=== PATIENT | female | born 1935 | race Caucasian/White ===

== ENCOUNTER 2017-03-31 17:39 | Emergency (ER) | payer OTHER ==
[~2017-03-31] VITALS: Ht 154.9 cm; Wt 126.1 kg
[~2017-03-31 17:39] MED LIST: ALBUTEROL17 GM IH; ALPRAZOLAM0.25 M2 PO; ATARAX,VISTARIL50 MG PO; ATARAX10 MG PO; AUGMENTIN875 MG PO; AVAPRO150 MG PO; CALCITRIOL0.25 MCG PO; DETROL LA2 MG PO; DETROL1 MG PO; DIOVAN320 MG PO; DUONEB 2.5-0.5 M3 ML IH; FLONASE16 G1 BOTH NARES; FLONASE16 G1 NS; FLUTICASONE IH; FUROSEMIDE20 MG; GABAPENTIN300 MG; HCTZ PO; HYDROCHLOROTH12.5 M3 PO; LANTUS100 UNIT/1 SQ; LASIX20 MG PO; LASIX40 MG PO; LEVEMIR100 UNIT/2 SC; LOPRESSOR100 MG PO; LOVASTATIN40 MG PO; MEDROL DOSEPAK4 MG PO; METOPROLOL PO; METOPROLOL TAR100 MG PO; MEVACOR40 MG PO; MUCINEX600 MG PO; NEURONTIN300 MG PO; NORVASC2.5 MG PO; PLAVIX75 MG PO; PREDNISONE; PREDNISONE20 MG PO; PREDNISONE50 MG PO; PROAIR HFA8.5 GM IH; SINGULAIR10 MG; SINGULAIR10 MG PO; STERAPRED DS PO; SYMBICORT60 INHALAT IH; TESSALON PERLE100 MG PO; TRAMADOL HCL50 MG PO; TUSSIN DM CLEA118 M1 PO; VITAMIN D50000 UNI1 PO; ZITHROMAX Z-PA250 MG PO; ZYRTEC10 M2 PO
[2017-03-31 18:36] LABS: HEMATOCRIT 34.2 % (36.0-46.0); MCH 32.1 PG (29.0-34.0); MCHC 33.3 G/DL (30.0-36.0); MCV 96.3 FL (83-99); MEAN PLAT.VOLUME 9.6 uM^3 (9.5-12.4); PLATELET COUNT 214 K/uL (156-360); RBC DIS.WIDTH-CV 12.1 % (11.8-14.6); RBC DIS.WIDTH-SD 42.5 % (39-53); RED BLOOD COUNT 3.55 M/uL (3.80-5.20); WHITE BLOOD COUNT 8.9 K/uL (4.1-10.2)
[2017-03-31 20:00] LABS: CHLORIDE 107 mEq/L (99-109); POTASSIUM 4.8 mEq/L (3.7-5.4); SODIUM 142 mEq/L (136-147)
[2017-03-31 20:03] LABS: ANION GAP 9 MEQ/L (2-14); GLUCOSE 83 mg/dL (70-99)
[2017-03-31 20:04] LABS: TOTAL BILIRUBIN 0.5 mg/dL (0.0-1.0)
[2017-03-31 20:06] LABS: ALKALINE PHOSPHATASE 87 IU/L (3-129); GFR ESTIMATE (CALCULATED) 51 mL/min/
[2017-03-31 20:07] LABS: UREA NITROGEN (BUN) 39 mg/dL (9-23)
[2017-03-31 20:09] LABS: LIPASE 5 U/L (1.0-51.0)
[2017-03-31] MEDS ORDERED: PREPARATION H C51 GM PR (20:32)
[2017-03-31 22:11] VITALS: BP 184/81
== END 2017-03-31 22:12 | disposition home or self-care (01) ==
LOC: EME 17:39
PROVIDERS: Emergency Medicine
DX: R10.13 Epigastric pain (principal); K64.4 Residual hemorrhoidal skin tags; K92.2 Gastrointestinal hemorrhage, unspecified; E11.22 Type 2 diabetes mellitus with diabetic chronic kidney disease; I12.9 Hypertensive chronic kidney disease with stage 1 through stage 4 chronic kidney disease, or unspecified chronic kidney disease; N18.9 Chronic kidney disease, unspecified; Z79.4 Long term (current) use of insulin; E78.5 Hyperlipidemia, unspecified; J44.9 Chronic obstructive pulmonary disease, unspecified; M79.7 Fibromyalgia; K21.9 Gastro-esophageal reflux disease without esophagitis; Z88.8 Allergy status to other drugs, medicaments and biological substances; Z87.891 Personal history of nicotine dependence
CPT/HCPCS: 74177; 80053; 81003; 83605; 83690; 85027; 99281; 99285; J1200; J2270; J2405; J2930

== ENCOUNTER 2017-08-03 07:50 | Observation (INO) | payer OTHER ==
[~2017-08-03] VITALS: Ht 154.9 cm; Wt 125.3 kg
[~2017-08-03 07:50] MED LIST changes: +PREPARATION H C51 GM PR
[2017-08-03 10:03] LABS: HEMATOCRIT 34.1 % (36.0-46.0); HEMOGLOBIN 11.4 G/DL (11.9-15.5); MCH 31.3 PG (29.0-34.0); MCHC 33.4 G/DL (30.0-36.0); MCV 93.7 FL (83-99); PLATELET COUNT 252 K/uL (156-360); RBC DIS.WIDTH-CV 12.4 % (11.8-14.6); RBC DIS.WIDTH-SD 42.7 % (39-53); RED BLOOD COUNT 3.64 M/uL (3.80-5.20); WHITE BLOOD COUNT 9.5 K/uL (4.1-10.2)
[2017-08-03 10:08] LABS: INTER. NORMALIZED RATIO 1.1
[2017-08-03 10:10] LABS: ALBUMIN 3.5 g/dL (3.2-4.8); CHLORIDE 104 mEq/L (99-109); POTASSIUM 4.7 mEq/L (3.7-5.4); PTT 30.3 SEC (25-37); SODIUM 141 mEq/L (136-147)
[2017-08-03 10:13] LABS: GLUCOSE 108 mg/dL (70-99); TOTAL PROTEIN 6.6 g/dL (6.4-8.3)
[2017-08-03 10:15] LABS: TOTAL BILIRUBIN 0.8 mg/dL (0.0-1.0)
[2017-08-03 10:16] LABS: ALKALINE PHOSPHATASE 98 IU/L (3-129); CREATININE 1.1 mg/dL (0.6-1.3); GFR ESTIMATE (CALCULATED) 51 mL/min/
[2017-08-03 10:17] LABS: UREA NITROGEN (BUN) 28 mg/dL (9-23)
[2017-08-03 10:18] LABS: AST (GOT) 19 IU/L (2-34)
[2017-08-03 10:19] LABS: ALT (GPT) 12 IU/L (3-49)
[2017-08-03] MEDS ORDERED: CENTRUM SILVER1 EAC3 PO (15:44)
[2017-08-03] MEDS ORDERED: BREO ELLIPTA 21 EACH IH (15:47)
[2017-08-03 18:30] VITALS: BP 144/74
[2017-08-03 23:56] LABS: APPEARANCE CLOUDY ((CLEAR)); BILIRUBIN NEGATIVE; BLOOD NEGATIVE; COLOR YELLOW ((YELLOW)); GLUCOSE (STRIP) >=500; KETONES 5; LEUKOCYTES LARGE; NITRITE NEGATIVE; PROTEIN (STRIP) 30; SPECIFIC GRAVITY 1.012 (1.000-1.030); UROBILINOGEN 0.2 MG/DL (0.2-1.0)
[2017-08-04] LABS: BACTERIA RARE /HPF; EPITHELIAL CELLS 1+ /HPF; MUCUS TRACE /LPF; UCUL ADDED? YES; WHITE BLOOD CELLS TNTC /HPF (0-5)
[2017-08-04 00:22] VITALS: BP 131/56
[2017-08-04 03:31] VITALS: BP 145/63
[2017-08-04 06:36] VITALS: BP 132/60
[2017-08-04 06:37] LABS: HEMATOCRIT 31.2 % (36.0-46.0); HEMOGLOBIN 10.1 G/DL (11.9-15.5); MCH 30.8 PG (29.0-34.0); MCHC 32.4 G/DL (30.0-36.0); MCV 95.1 FL (83-99); PLATELET COUNT 247 K/uL (156-360); RBC DIS.WIDTH-CV 12.4 % (11.8-14.6); RBC DIS.WIDTH-SD 42.9 % (39-53); RED BLOOD COUNT 3.28 M/uL (3.80-5.20); WHITE BLOOD COUNT 8.5 K/uL (4.1-10.2)
[2017-08-04 07:03] LABS: CHLORIDE 102 MEQ/L (99-109); CREATININE 1.5 MG/DL (0.6-1.3); GFR ESTIMATE (CALCULATED) 36 mL/min/; POTASSIUM 4.6 MEQ/L (3.7-5.4); SODIUM 136 MEQ/L (136-147)
[2017-08-04 07:04] LABS: GLUCOSE 244 mg/dL (70-99); UREA NITROGEN (BUN) 48 mg/dL (9-23)
[2017-08-04 14:34] LABS: CHLORIDE 101 MEQ/L (99-109); CREATININE 1.7 MG/DL (0.6-1.3); GFR ESTIMATE (CALCULATED) 31 mL/min/; GLUCOSE 173 mg/dL (70-99); POTASSIUM 4.4 MEQ/L (3.7-5.4); SODIUM 135 MEQ/L (136-147); UREA NITROGEN (BUN) 52 mg/dL (9-23)
[2017-08-04 15:34] VITALS: BP 130/57
[2017-08-05 00:20] VITALS: BP 127/59
[2017-08-05 06:31] LABS: HEMATOCRIT 30.8 % (36.0-46.0); MCH 31.1 PG (29.0-34.0); MCHC 32.5 G/DL (30.0-36.0); MCV 95.7 FL (83-99); PLATELET COUNT 243 K/uL (156-360); RBC DIS.WIDTH-CV 12.7 % (11.8-14.6); RBC DIS.WIDTH-SD 43.8 % (39-53); RED BLOOD COUNT 3.22 M/uL (3.80-5.20); WHITE BLOOD COUNT 8.6 K/uL (4.1-10.2)
[2017-08-05 07:06] LABS: CHLORIDE 107 MEQ/L (99-109); CREATININE 1.7 MG/DL (0.6-1.3); GFR ESTIMATE (CALCULATED) 31 mL/min/; POTASSIUM 4.6 MEQ/L (3.7-5.4); SODIUM 139 MEQ/L (136-147); UREA NITROGEN (BUN) 64 mg/dL (9-23)
[2017-08-05 07:08] LABS: GLUCOSE 106 mg/dL (70-99)
[2017-08-05 09:05] VITALS: BP 151/63
[2017-08-05 17:56] VITALS: BP 147/68
[2017-08-05 23:52] VITALS: BP 189/81
[2017-08-06 00:12] VITALS: BP 160/82
[2017-08-06 07:13] LABS: CHLORIDE 109 MEQ/L (99-109); GFR ESTIMATE (CALCULATED) 46 mL/min/; GLUCOSE 158 mg/dL (70-99); POTASSIUM 4.4 MEQ/L (3.7-5.4); SODIUM 140 MEQ/L (136-147); UREA NITROGEN (BUN) 52 mg/dL (9-23)
[2017-08-06 07:14] LABS: CREATININE 1.2 MG/DL (0.6-1.3)
[2017-08-06 07:47] VITALS: BP 165/68
[2017-08-06] MEDS ORDERED: Salonpas 4% Patch TD (10:22)
[2017-08-06] MEDS ORDERED: CEFTIN250 MG PO (10:23)
[2017-08-06] MEDS ORDERED: LOVENOX40 MG/0.4 SC (14:21)
== END 2017-08-06 13:45 ==
LOC: EME 07:50 → EDOF 15:40 → 5SOUTH 15:40 → EDOF 15:40 → CANRESERV 15:52 → ENRESERV 15:52 → 5SOUTH 18:06
PROVIDERS: Emergency Medicine; Hospitalist; Internal Medicine
DX: G89.29 Other chronic pain (principal); M25.562 Pain in left knee; M17.12 Unilateral primary osteoarthritis, left knee; N17.9 Acute kidney failure, unspecified; N39.0 Urinary tract infection, site not specified; B96.20 Unspecified Escherichia coli [E. coli] as the cause of diseases classified elsewhere; R26.89 Other abnormalities of gait and mobility; E66.01 Morbid (severe) obesity due to excess calories; Z68.43 Body mass index [BMI] 50.0-59.9, adult; I12.9 Hypertensive chronic kidney disease with stage 1 through stage 4 chronic kidney disease, or unspecified chronic kidney disease; N18.9 Chronic kidney disease, unspecified; J44.9 Chronic obstructive pulmonary disease, unspecified; Z79.52 Long term (current) use of systemic steroids; E11.22 Type 2 diabetes mellitus with diabetic chronic kidney disease; Z79.4 Long term (current) use of insulin; M48.02 Spinal stenosis, cervical region; E78.5 Hyperlipidemia, unspecified; K21.9 Gastro-esophageal reflux disease without esophagitis; R04.0 Epistaxis; Z98.84 Bariatric surgery status; Z90.49 Acquired absence of other specified parts of digestive tract; Z90.710 Acquired absence of both cervix and uterus; Z87.891 Personal history of nicotine dependence; Z88.6 Allergy status to analgesic agent; Z91.041 Radiographic dye allergy status; Z79.02 Long term (current) use of antithrombotics/antiplatelets
CPT/HCPCS: 73564; 73700; 80048; 80048 91; 80053; 81003; 82948; 85027; 85610; 85730; 87077; 87086; 87186; 93005; 94640; 94640 76; 97530 GP; 99281; 99285; G0378; G8978 GP CK; G8979 CJ; G8980 GP CK; G8987 GO CL; G8988 GO CK; G8989 GO CK; J0696; J1650; J1815; J2270; J7030; J7512

== ENCOUNTER 2017-08-06 09:19 | Inpatient (IN) | payer OTHER ==
[~2017-08-06] VITALS: Ht 154.9 cm; Wt 130.7 kg
[~2017-08-06 09:19] MED LIST changes: +BREO ELLIPTA 21 EACH IH; +CENTRUM SILVER1 EAC3 PO
[2017-08-06] MEDS ORDERED: Salonpas 4% Patch TD (10:22)
[2017-08-06] MEDS ORDERED: CEFTIN250 MG PO (10:23)
[2017-08-06] MEDS ORDERED: LOVENOX40 MG/0.4 SC (14:21)
[2017-08-06 16:48] VITALS: BP 170/76
[2017-08-07 05:43] VITALS: BP 136/74
[2017-08-07 15:28] VITALS: BP 148/66
[2017-08-08 06:00] VITALS: BP 158/82
[2017-08-08 15:37] VITALS: BP 148/65
[2017-08-09 05:37] LABS: BASOPHIL (%) 0.7 % (0-1); BASOPHIL COUNT 0.1 K/uL (0-0.1); EOSINOPHIL (%) 11.1 % (0-5); EOSINOPHIL COUNT 0.8 K/uL (0-0.3); HEMATOCRIT 32.3 % (36.0-46.0); HEMOGLOBIN 10.4 G/DL (11.9-15.5); IMMATURE GRANULOCYTE (%) 0.3 % (0.0-0.7); LYMPHOCYTE (%) 18.8 % (15-42); LYMPHOCYTE COUNT 1.3 K/uL (1.0-2.8); MCHC 32.2 G/DL (30.0-36.0); MCV 96.1 FL (83-99); MONOCYTE (%) 9.5 % (3-12); MONOCYTE COUNT 0.7 K/uL (0-0.8); NEUTROPHIL (%) 59.6 % (45-76); NEUTROPHIL COUNT 4.1 K/uL (1.8-6.4); PLATELET COUNT 244 K/uL (156-360); RBC DIS.WIDTH-CV 12.5 % (11.8-14.6); RBC DIS.WIDTH-SD 43.7 % (39-53); RED BLOOD COUNT 3.36 M/uL (3.80-5.20); WHITE BLOOD COUNT 6.9 K/uL (4.1-10.2)
[2017-08-09 05:54] VITALS: BP 137/62
[2017-08-09 05:58] LABS: CHLORIDE 107 MEQ/L (99-109); GFR ESTIMATE (CALCULATED) 57 mL/min/; POTASSIUM 4.6 MEQ/L (3.7-5.4); SODIUM 140 MEQ/L (136-147); UREA NITROGEN (BUN) 36 mg/dL (9-23)
[2017-08-09 05:59] LABS: GLUCOSE 104 mg/dL (70-99)
[2017-08-09 15:13] VITALS: BP 192/81
[2017-08-09 17:16] VITALS: BP 162/84
[2017-08-10 05:42] VITALS: BP 172/70
[2017-08-10 15:06] VITALS: BP 153/70
[2017-08-11 05:58] VITALS: BP 142/72
[2017-08-11 07:21] VITALS: BP 162/75
[2017-08-11 16:33] VITALS: BP 143/66
[2017-08-12 05:53] VITALS: BP 151/64
[2017-08-12 07:28] VITALS: BP 162/70
[2017-08-12 15:04] VITALS: BP 145/64
[2017-08-13 05:06] VITALS: BP 150/86
[2017-08-13 06:43] LABS: BASOPHIL (%) 0.8 % (0-1); BASOPHIL COUNT 0.1 K/uL (0-0.1); EOSINOPHIL (%) 8.6 % (0-5); EOSINOPHIL COUNT 0.6 K/uL (0-0.3); HEMATOCRIT 30.5 % (36.0-46.0); HEMOGLOBIN 9.8 G/DL (11.9-15.5); IMMATURE GRANULOCYTE (%) 0.4 % (0.0-0.7); LYMPHOCYTE (%) 16.3 % (15-42); LYMPHOCYTE COUNT 1.2 K/uL (1.0-2.8); MCH 30.8 PG (29.0-34.0); MCHC 32.1 G/DL (30.0-36.0); MCV 95.9 FL (83-99); MONOCYTE (%) 9.7 % (3-12); MONOCYTE COUNT 0.7 K/uL (0-0.8); NEUTROPHIL (%) 64.2 % (45-76); NEUTROPHIL COUNT 4.6 K/uL (1.8-6.4); PLATELET COUNT 275 K/uL (156-360); RBC DIS.WIDTH-CV 12.6 % (11.8-14.6); RBC DIS.WIDTH-SD 43.9 % (39-53); RED BLOOD COUNT 3.18 M/uL (3.80-5.20); WHITE BLOOD COUNT 7.2 K/uL (4.1-10.2)
[2017-08-13 07:06] LABS: ALBUMIN 3.1 G/DL (3.2-4.8); ALKALINE PHOSPHATASE 61 IU/L (3-129); ALT (GPT) 14 IU/L (3-49); AST (GOT) 15 IU/L (2-34); CHLORIDE 107 MEQ/L (99-109); GFR ESTIMATE (CALCULATED) 57 mL/min/; GLUCOSE 129 mg/dL (70-99); POTASSIUM 4.6 MEQ/L (3.7-5.4); SODIUM 139 MEQ/L (136-147); TOTAL BILIRUBIN 0.3 MG/DL (0.0-1.0); TOTAL PROTEIN 5.8 G/DL (6.4-8.3); UREA NITROGEN (BUN) 43 mg/dL (9-23)
[2017-08-13] MEDS ORDERED: BREO ELLIPTA 21 EACH IH (11:03)
== END 2017-08-13 13:59 | disposition home health service (06) | DRG 554 ==
LOC: 3WEST 09:19 → ENPENDDIS 08-13 → 3WEST 08-13 10:33
PROVIDERS: Psychiatry & Neurology Neurology
PROC: F07M0ZZ Range of Motion and Joint Mobility Treatment of Musculoskeletal System - Whole Body (ICD-10-PCS; principal; 2017-08-06)
DX: M17.0 Bilateral primary osteoarthritis of knee (principal); N17.9 Acute kidney failure, unspecified; R26.2 Difficulty in walking, not elsewhere classified; N18.9 Chronic kidney disease, unspecified; N39.0 Urinary tract infection, site not specified; I12.9 Hypertensive chronic kidney disease with stage 1 through stage 4 chronic kidney disease, or unspecified chronic kidney disease; E66.01 Morbid (severe) obesity due to excess calories; Z68.43 Body mass index [BMI] 50.0-59.9, adult; B96.20 Unspecified Escherichia coli [E. coli] as the cause of diseases classified elsewhere; E11.22 Type 2 diabetes mellitus with diabetic chronic kidney disease; E78.5 Hyperlipidemia, unspecified; J44.9 Chronic obstructive pulmonary disease, unspecified; K21.9 Gastro-esophageal reflux disease without esophagitis; Z79.4 Long term (current) use of insulin; Z87.891 Personal history of nicotine dependence; Z90.710 Acquired absence of both cervix and uterus; Z98.84 Bariatric surgery status
CPT/HCPCS: 80048; 80053; 82948; 85025; 93970; 94640; 94640 76; 97110 GO; 97530 GP; 99202; J1650; J1815